=== PATIENT | male | born 1995 | race Caucasian/White ===

== ENCOUNTER 2016-10-03 21:02 | Emergency (ER) | payer SELFPAY ==
[~2016-10-03] VITALS: Ht 167.6 cm; Wt 65.8 kg
--- NOTE | 2016-10-03 21:02 | NUR ---
PT BIB [facility], PREBOOK. TAKEN TO [facility]
[2016-10-03 21:05] VITALS: BP 153/71
--- NOTE | 2016-10-03 21:05 | NUR ---
PATIENT PRESENTS TO ED WITH PREBOOK WITH [facility] . PT DENIES N/V/D; SKIN IS PINK/WARM/DRY; AAOX4 WITH EVEN AND STEADY GAIT; LUNGS CLEAR BL; HR EVEN AND REGULAR; PT DENIES ANY FEVER, CP, SOB, OR COUGH AT THIS TIME; PATIENT STATES PAIN OF 0/10 AT THIS TIME; VSS; PATIENT POSITIONED FOR COMFORT; HOB ELEVATED; BEDRAILS UP X2; BED DOWN. ER MD MADE AWARE OF PT STATUS.
--- NOTE | 2016-10-03 21:30 | NUR ---
Dr. Pretty evaluating patient
[2016-10-03 21:40] VITALS: BP 153/71
--- NOTE | 2016-10-03 21:41 | NUR ---
Patient discharged with v/s stable. Written and verbal after care instructions given and explained. Patient verbalized understanding. Police with in custody. All questions addressed prior to discharge. Advised to follow up with PMD.
== END 2016-10-03 21:41 ==
LOC: MED 21:02
DX: Z04.1 Encounter for examination and observation following transport accident (principal)